=== PATIENT | female | born 1945 | race Caucasian/White ===

== ENCOUNTER 2017-04-22 10:28 | Emergency (ER) | payer MEDICARE, MEDICAID ==
[2017-04-22] MEDS ORDERED: Sodium Chloride 0.9% 10 ML Syringe FLUSH PRN (10:39)
[2017-04-22] MEDS ORDERED: Labetalol 100 MG/20 ML MDV IVPUSH ONE (11:18)
[2017-04-22 11:30] VITALS: BP 224/84
--- NOTE | 2017-04-22 12:18 | EDM.PDOC ---
ED HPI GENERAL MEDICAL PROBLEM - General Chief Complaint: Neurological Problem Stated Complaint: POSS. STROKE Time Seen by Provider: 04/22/17 10:32 Source of Information: Reports: Patient History Limitations: Reports: No Limitations - History of Present Illness INITIAL COMMENTS - FREE TEXT/NARRATIVE: The patient presents with left sided facial weakness. She noticed this about 4 days ago. She has numbness and weakness to her left face but not to her left arm or leg. She has trouble closing her eye. She has no fever, chills, cough, chest pain, shortness of breath, abdominal pain, nausea or vomiting. She stopped taking her medicine a few months ago and her blood pressure is high. Onset: Gradual Duration: Day(s): (4) Location: Reports: Face Severity: Moderate Improves with: Reports: None Worsens with: Reports: None Associated Symptoms: Reports: No Other Symptoms - Related Data Allergies Allergy/AdvReac Type Severity Reaction Status Date / Time No Known Allergies Allergy Verified 07/17/14 10:51 Home Meds: Home Meds Dextran 70/Hypromellose [Artificial Tears] 4 drop EYELF Q2HR #1 bottle 04/22/17 [Rx] Hydrochlorothiazide 25 mg PO DAILY #30 tab 04/22/17 [Rx] Prednisone [IJD: predniSONE] 60 mg PO WITHBREAKFAST #21 tab 04/22/17 [Rx] valACYclovir HCl [Valacyclovir] 1,000 mg PO TID #21 tablet 04/22/17 [Rx] Past Medical History HEENT History: Reports: Impaired Vision Cardiovascular History: Reports: Hypertension Respiratory History: Reports: Sleep Apnea, SOB Gastrointestinal History: Reports: GERD 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: - Past Surgical History HEENT Surgical History: Reports: Cataract Surgery Social & Family History - Tobacco Use Smoking Status *Q: Never Smoker Second Hand Smoke Exposure: No - Caffeine Use Caffeine Use: Reports: Tea - Alcohol Use Days Per Week of Alcohol Use: 0 - Recreational Drug Use Recreational Drug Use: No ED ROS GENERAL - Review of Systems Review Of Systems: See Below Constitutional: Reports: No Symptoms HEENT: Reports: No Symptoms Respiratory: Reports: No Symptoms Cardiovascular: Reports: No Symptoms Endocrine: Reports: No Symptoms GI/Abdominal: Reports: No Symptoms : Reports: No Symptoms Musculoskeletal: Reports: No Symptoms Neurological: Reports: Numbness (Left face), Weakness (Left sided facial weakness) ED EXAM, NEURO - Physical Exam Exam: See Below Exam Limited By: No Limitations General Appearance: Alert, No Apparent Distress Eye Exam: Left Eye: Other (She cannot close her eyelid) Ears: Normal External Exam Nose: Normal Inspection Head Exam: Atraumatic, Normocephalic Neck: Normal Inspection Respiratory/Chest: No Respiratory Distress, Lungs Clear, Normal Breath Sounds Cardiovascular: Regular Rate, Rhythm, No Edema, No Murmur GI/Abdominal: Soft, Non-Tender, No Organomegaly, No Mass Neurological: Alert, Oriented x 3, Other (Moderate left sided facial droop and she cannot close her left eye. She has numbness to the left side of her face. She has no numbness or weakness to her arms or legs. She cannot move the left forehead.) Extremities: Normal Inspection EKG INTERPRETATION EKG Date: 04/22/17 Time: 10:40 Rhythm: NSR Rate (Beats/Min): 74 Boring: Normal P-Wave: Present QRS: Normal ST-T: Normal QT: Normal Course - Vital Signs Last Recorded V/S: Last Vital Signs Temp 98.4 F 04/22/17 10:33 Pulse 69 04/22/17 11:28 Resp 13 04/22/17 10:33 BP 224/84 H 04/22/17 11:28 Pulse Ox 100 04/22/17 10:33 - Orders/Labs/Meds Orders: Active Orders 24 hr Category Date Time Status Cardiac Monitoring [RC] . DIRECTED Care 04/22/17 10:39 Active EKG Documentation Completion [RC] STAT Care 04/22/17 10:40 Active Peripheral IV Care [RC] . DIRECTED Care 04/22/17 10:40 Active Head wo Cont [CT] Stat Exams 04/22/17 10:34 Taken Sodium Chloride 0.9% [Saline Flush] Med 04/22/17 10:39 Active 10 ml FLUSH ASDIRECTED PRN Peripheral IV Insertion Adult [OM.PC] Stat Oth 04/22/17 10:39 Ordered Medication Orders Sodium Chloride (Saline Flush) 10 ml FLUSH ASDIRECTED PRN PRN Reason: Keep Vein Open Last Admin: 04/22/17 10:50 Dose: 10 ml Labs: Laboratory Tests 04/22/17 04/22/17 04/22/17 Range/Units 10:40 10:40 10:40 WBC 10.12 H (3.98-10.04) K/mm3 RBC 5.37 H (3.98-5.22) M/mm3 Hgb 15.3 (11.2-15.7) gm/L Hct 45.2 H (34.1-44.9) % MCV 84.2 (79.4-94.8) fl MCH 28.5 (25.6-32.2) pg MCHC 33.8 (32.2-35.5) g/dl RDW Std Deviation 40.0 (36.4-46.3) fL Plt Count 269 (182-369) K/mm3 MPV 9.6 (9.4-12.3) fl Neut % (Auto) 57.9 (34.0-71.1) % Lymph % (Auto) 34.3 (19.3-51.7) % [place] % (Auto) 5.7 (4.7-12.5) % Eos % (Auto) 1.5 (0.7-5.8) Baso % (Auto) 0.4 (0.1-1.2) % Neut # (Auto) 5.86 (1.56-6.13) K/mm3 Lymph # (Auto) 3.47 (1.18-3.74) K/mm3 [place] # (Auto) 0.58 H (0.24-0.36) K/mm3 Eos # (Auto) 0.15 (0.04-0.36) K/mm3 Baso # (Auto) 0.04 (0.01-0.08) K/mm3 PT 10.0 (8.0-13.0) SECONDS INR 0.92 APTT 26 (22-36) SECONDS Sodium 139 (136-145) mEq/L Potassium 4.0 (3.5-5.1) mEq/L Chloride 103 (98-107) mEq/L Carbon Dioxide 28 (21-32) mEq/L Anion Gap 12.0 (5-15) BUN 24 H (7-18) mg/dL Creatinine 1.4 H (0.55-1.02) mg/dL Est Cr Clr Drug Dosing 33.00 mL/min Estimated GFR (MDRD) 37 (>60) mL/min BUN/Creatinine Ratio 17.1 (14-18) Glucose 122 H (83-115) mg/dL POC Glucose (83-110) mg/dL Calcium 9.5 (8.5-10.1) mg/dL Total Bilirubin 0.7 (0.2-1.0) mg/dL AST 17 (15-37) U/L ALT 26 (14-59) U/L Alkaline Phosphatase 81 (46-116) U/L Troponin I < 0.017 (0.00-0.056) ng/mL Total Protein 7.8 (6.4-8.2) g/dl Albumin 3.9 (3.4-5.0) g/dl Globulin 3.9 gm/dL Albumin/Globulin Ratio 1.0 (1-2) 04/22/17 Range/Units 10:45 WBC (3.98-10.04) K/mm3 RBC (3.98-5.22) M/mm3 Hgb (11.2-15.7) gm/L Hct (34.1-44.9) % MCV (79.4-94.8) fl MCH (25.6-32.2) pg MCHC (32.2-35.5) g/dl RDW Std Deviation (36.4-46.3) fL Plt Count (182-369) K/mm3 MPV (9.4-12.3) fl Neut % (Auto) (34.0-71.1) % Lymph % (Auto) (19.3-51.7) % [place] % (Auto) (4.7-12.5) % Eos % (Auto) (0.7-5.8) Baso % (Auto) (0.1-1.2) % Neut # (Auto) (1.56-6.13) K/mm3 Lymph # (Auto) (1.18-3.74) K/mm3 [place] # (Auto) (0.24-0.36) K/mm3 Eos # (Auto) (0.04-0.36) K/mm3 Baso # (Auto) (0.01-0.08) K/mm3 PT (8.0-13.0) SECONDS INR APTT (22-36) SECONDS Sodium (136-145) mEq/L Potassium (3.5-5.1) mEq/L Chloride (98-107) mEq/L Carbon Dioxide (21-32) mEq/L Anion Gap (5-15) BUN (7-18) mg/dL Creatinine (0.55-1.02) mg/dL Est Cr Clr Drug Dosing mL/min Estimated GFR (MDRD) (>60) mL/min BUN/Creatinine Ratio (14-18) Glucose (83-115) mg/dL POC Glucose 109 (83-110) mg/dL Calcium (8.5-10.1) mg/dL Total Bilirubin (0.2-1.0) mg/dL AST (15-37) U/L ALT (14-59) U/L Alkaline Phosphatase (46-116) U/L Troponin I (0.00-0.056) ng/mL Total Protein (6.4-8.2) g/dl Albumin (3.4-5.0) g/dl Globulin gm/dL Albumin/Globulin Ratio (1-2) Meds: Medications Generic Name Dose Route Start Last Admin Trade Name Freq PRN Reason Stop Dose Admin Sodium Chloride 10 ml 04/22/17 10:39 04/22/17 10:50 Saline Flush FLUSH 10 ml ASDIRECTED PRN Administration Keep Vein Open Discontinued Medications Generic Name Dose Route Start Last Admin Trade Name Freq PRN Reason Stop Dose Admin Labetalol HCl 20 mg 04/22/17 11:18 04/22/17 11:28 Normodyne IVPUSH 04/22/17 11:19 20 mg ONETIME ONE Administration Protocol - Re-Assessments/Exams Free Text/Narrative Re-Assessment/Exam: 04/22/17 12:19 A stroke alert was called. The patient's last time know well was April [address] of her head was done and it shows nothing acute. Her WBC was slightly elevated at 10.12. Her Hgb was 15.3. Her creatinine was elevated at 1.4. Her troponin was negative. I checked her left eye with umberto and there was no sign of a corneal abrasion. She has bells palsy. She has moderate disease. I will get her on some prednisone 60mg daily for 7 days and because she has moderate symptoms I will also put her on some valacyclivir. I will also get her on some HCTZ for her blood pressure. She does not have a doctor so I will have her see Dr Reyes. Departure - Departure Time of Disposition: 12:25 Disposition: Home, Self-Care 01 Condition: Good Clinical Impression: Castillo's palsy Hypertension Qualifiers: Hypertension type: essential hypertension Qualified Code(s): I10 - Essential ( primary) hypertension - Discharge Information Prescriptions: Dextran 70/Hypromellose [Artificial Tears] 4 drop EYELF Q2HR #1 bottle Hydrochlorothiazide 25 mg PO DAILY #30 tab Prednisone [IJD: predniSONE] 60 mg PO WITHBREAKFAST #21 tab valACYclovir HCl [Valacyclovir] 1,000 mg PO TID #21 tablet Referrals: PCP,None [Primary Care Provider] - Galina Reyes MD [Physician] - Forms: ED Department Discharge Additional Instructions: Take predisone 60mg daily for 7 days. Take the valacyclivir 3 times per day. Take the hydrochlorothiazide daily for your blood pressure. Use the artifical tears 4 drops every 4 hours as needed or more if needed. Please return if you are worse. Follow up with Dr Reyes this next week. - My Orders Last 24 Hours: My Active Orders 04/22/17 10:34 Head wo Cont [CT] Stat 04/22/17 10:39 Cardiac Monitoring [RC] . DIRECTED Sodium Chloride 0.9% [Saline Flush] 10 ml FLUSH ASDIRECTED PRN Peripheral IV Insertion Adult [OM.PC] Stat 04/22/17 10:40 EKG Documentation Completion [RC] STAT Peripheral IV Care [RC] . DIRECTED - Assessment/Plan Last 24 Hours: My Active Orders 04/22/17 10:34 Head wo Cont [CT] Stat 04/22/17 10:39 Cardiac Monitoring [RC] . DIRECTED Sodium Chloride 0.9% [Saline Flush] 10 ml FLUSH ASDIRECTED PRN Peripheral IV Insertion Adult [OM.PC] Stat 04/22/17 10:40 EKG Documentation Completion [RC] STAT Peripheral IV Care [RC] . DIRECTED
--- NOTE | 2017-04-23 13:26 | CT ---
Head CT Technique: Multiple axial sections through the brain were obtained. Intravenous contrast was not utilized. Comparison: No previous intracranial imaging. Findings: Ventricles along with basal cisterns and sulci over the convexities are mildly prominent. Slightly greater atrophy is seen within the frontal regions. 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 No other abnormal parenchymal densities are seen. No evidence of intracranial hemorrhage. No midline shift or mass effect is seen. Bone window settings were reviewed which show the visualized sinuses to appear clear. No acute calvarial abnormality is seen. Impression: 1. Mild senescent change as described above. 2. No acute intracranial abnormality is identified. Diagnostic code #2 MTDD
== END 2017-04-22 13:00 | disposition home or self-care (01) ==
LOC: JD.ED 10:28
DX: G51.0 Bell's palsy (principal); I10 Essential (primary) hypertension; K21.9 Gastro-esophageal reflux disease without esophagitis; Z79.899 Other long term (current) drug therapy
CPT/HCPCS: 36415; 70450; 70450-26; 80053; 82962; 84484; 85025; 85610; 85730; 93005; 96374; 99285-25; J7050

== ENCOUNTER 2020-09-11 18:34 | Emergency (ER) | payer MEDICARE, MEDICAID ==
[2020-09-11] MEDS ORDERED: Labetalol 100 MG/20 ML MDV IVPUSH STA (19:43)
--- NOTE | 2020-09-11 20:18 | CT ---
Head CT Technique: Multiple axial sections through the brain were obtained. Intravenous contrast was not utilized. Reconstructed coronal and sagittal images were obtained. Comparison: Prior head CT study of 04/22/17. Findings: Ventricles along with basal cisterns and sulci over the convexities are mildly prominent. Atrophy is more prominent within the frontal regions. These findings are stable from prior head CT exam. Small lacunar infarct is noted within the right basal ganglia. Mild areas of diminished density are noted within the periventricular white matter compatible with mild small vessel ischemic demyelination change. There is no evidence of intracranial hemorrhage. No midline shift or mass-effect is seen. Bone window settings were reviewed. Visualized mastoid sinuses and paranasal sinuses show nothing acute. No acute calvarial abnormality is appreciated. Impression: 1. Senescent change as described above. Findings remain fairly stable from prior head CT exam. 2. No acute intracranial abnormality is appreciated. Diagnostic code #2
--- NOTE | 2020-09-11 20:19 | EDM.PDOC ---
ED HPI GENERAL MEDICAL PROBLEM - General Chief Complaint: General Stated Complaint: POSS UTI Time Seen by Provider: 09/11/20 19:01 Source of Information: Reports: Patient, Family (Daughter) History Limitations: Reports: No Limitations - History of Present Illness INITIAL COMMENTS - FREE TEXT/NARRATIVE: Mrs. Hughes is a very pleasant 75-year-old woman who is now brought to the ED by her daughter for a number of complaints. She states that she has had a vaginal prolapse for the past 10 or 15 years, which has never been medically evaluated. She reports having either vaginal bleeding or gross hematuria for the past 3 weeks. The blood ranges from bright red to dark brown, and only occurs if she urinates, which is sometimes difficult. She denies having dysuria, although r eports having some urinary frequency. She also reports having 2 days of a bitemporal headache and upper right back pain. She describes the headache as a "sharp jab" that lasts only 1 to 2 minutes, and occurs only once a day. She states that her upper right back pain is not currently present. The triage note indicated that the patient has had blurry vision, but she states that that is chronic, and that she has not been to an eye doctor in years. The patient expressly denies having any recent chest pain, palpitations, dyspnea, abdominal pain, nausea, vomiting, or diarrhea. She states that she is chronically constipated. She reports that she experiences some dyspnea on exertion. The patient and her daughter went to the walk-in clinic today, where her systolic blood pressure was found to be over 200, therefore she was sent here. The patient states that she was treated for hypertension in 2014, but took the antihypertensive for less than a year, stopping on her own due to intolerance of side effects. She was then treated again for hypertension in 2018, but stopped the medication after less than a week, again for intolerance of side effects. Here in the ED, the patient's initial BP is found to be significantly elevated at 244/149. She is afebrile, saturating 97% on room air. A subsequent BP was found to be even higher at 263/96. The patient appears to be comfortable, in no acute distress. The patient denies having a recent fever, chills, sore throat, ear pain, nasal or sinus congestion, cough, dyspnea at rest, chest pain, palpitations, nausea, vomiting, diarrhea, abdominal pain, recent weight gain or weight loss, recent bloody bowel movements or black bowel movements, recent joint aches, or rashes. Patient does not have a PCP. Headache Pain Score (Numeric/FACES): 1 - Related Data Allergies Allergy/AdvReac Type Severity Reaction Status Date / Time No Known Allergies Allergy Verified 09/11/20 18:42 Home Meds: Home Meds Losartan/Hydrochlorothiazide [Losartan-HCTZ 50-12.5 MG] 1 tab PO QPM #30 tablet 09/11/20 [Rx] Past Medical History HEENT History: Reports: Impaired Vision Cardiovascular History: Reports: Hypertension (untreated) - Past Surgical History HEENT Surgical History: Reports: Cataract Surgery (right only), Oral Surgery (dental extractions) Musculoskeletal Surgical History: Reports: Other (See Below) (Right upper extremity repair) Social & Family History - Tobacco Use Tobacco Use Status *Q: Never Tobacco User - Caffeine Use Caffeine Use: Reports: Soda - Alcohol Use Alcohol Use History: No - Recreational Drug Use Recreational Drug Use: No - Living Situation & Occupation Living situation: Reports: , Alone Occupation: Retired ED ROS GENERAL - Review of Systems Review Of Systems: Comprehensive ROS is negative, except as noted in HPI. ED EXAM, GENERAL - Physical Exam Exam: See Below Exam Limited By: No Limitations General Appearance: Alert, WD/WN, No Apparent Distress Eye Exam: Bilateral Eye: EOMI, Normal Inspection (right s/p cataract surgery) Ears: Normal External Exam, Normal Canal, Hearing Grossly Normal, Normal TMs Nose: Normal Inspection, Normal Mucosa, No Blood Throat/Mouth: Normal Inspection, Normal Lips, Normal Teeth, Normal Gums, Normal Oropharynx, Normal Voice, No Airway Compromise Head: Atraumatic, Normocephalic Neck: Normal Inspection, Supple, Non-Tender, Full Range of Motion. No: Carotid Bruit, Lymphadenopathy (L), Lymphadenopathy (R) Respiratory/Chest: No Respiratory Distress, Lungs Clear, Normal Breath Sounds, No Accessory Muscle Use Cardiovascular: Normal Peripheral Pulses, Regular Rate, Rhythm, No Edema, No Gallop, No JVD, No Murmur, No Rub Peripheral Pulses: 3+: Radial (L), Radial (R) GI/Abdominal: Normal Bowel Sounds, Soft, Non-Tender, No Organomegaly, No Distention, No Abnormal Bruit, No Mass (Female) Exam: Other (Full vaginal prolapse/eversion, able to be reduced) Back Exam: Normal Inspection, Full Range of Motion, NT Extremities: Normal Inspection, Normal Range of Motion, No Pedal Edema, Normal Capillary Refill Neurological: Alert, Oriented, CN II-XII Intact, Normal Cognition, No Motor/Sensory Deficits Psychiatric: Normal Affect Skin Exam: Warm, Dry, Intact, Normal Color, No Rash #1 Interpretation EKG Date: 09/11/20 Time: 19:50 Rhythm: NSR Rate (Beats/Min): 64 [place]: Normal P-Wave: Present QRS: Other (LVH) ST-T: Other (T wave inversions V3V6, but no ischemic changes) QT: Normal Comparison: No Change (04/22/2017) Course - Vital Signs Last Recorded V/S: Last Vital Signs Temp 36.4 C 09/11/20 18:50 Pulse 60 09/11/20 23:16 Resp 16 09/11/20 23:16 BP 222/90 H 09/11/20 23:16 Pulse Ox 98 09/11/20 23:16 - Orders/Labs/Meds Labs: Laboratory Tests 09/11/20 09/11/20 09/11/20 Range/Units 18:58 18:58 18:58 WBC 11.11 H (3.98-10.04) K/mm3 RBC 4.95 (3.98-5.22) M/mm3 Hgb 14.3 (11.2-15.7) gm/dl Hct 42.7 (34.1-44.9) % MCV 86.3 (79.4-94.8) fl MCH 28.9 (25.6-32.2) pg MCHC 33.5 (32.2-35.5) g/dl RDW Std Deviation 41.3 (36.4-46.3) fL Plt Count 285 (182-369) K/mm3 MPV 10.2 (9.4-12.3) fl Neutrophils % (Manual) 47 (40-60) % Band Neutrophils % 0 (0-10) % Lymphocytes % (Manual) 40 (20-40) % Atypical Lymphs % 2 % Monocytes % (Manual) 8 (2-10) % Eosinophils % (Manual) 3 (0.7-5.8) % Basophils % (Manual) 0 L (0.1-1.2) Platelet Estimate Adequate RBC Morph Comment Normal Sodium 137 (136-145) mEq/L Potassium 4.0 (3.5-5.1) mEq/L Chloride 102 (98-107) mEq/L Carbon Dioxide 25 (21-32) mEq/L Anion Gap 14.0 (5-15) BUN 30 H (7-18) mg/dL Creatinine 1.4 H (0.55-1.02) mg/dL Est Cr Clr Drug Dosing 26.62 mL/min Estimated GFR (MDRD) 36 (>60) mL/min BUN/Creatinine Ratio 21.4 H (14-18) Glucose 143 H (70-99) mg/dL Calcium 9.3 (8.5-10.1) mg/dL Magnesium 2.1 (1.8-2.4) mg/dL Total Bilirubin 0.4 (0.2-1.0) mg/dL AST 15 (15-37) U/L ALT 27 (14-59) U/L Alkaline Phosphatase 75 (46-116) U/L Troponin I < 0.017 (0.00-0.056) ng/mL NT-Pro-B Natriuret Pep 708 H (0-450) pg/mL Total Protein 7.3 (6.4-8.2) g/dl Albumin 3.7 (3.4-5.0) g/dl Globulin 3.6 gm/dL Albumin/Globulin Ratio 1.0 (1-2) TSH 3rd Generation 4.152 H (0.358-3.74) uIU/mL Urine Color (Yellow) Urine Appearance (Clear) Urine pH (5.0-8.0) Ur Specific [place] (1.005-1.030) Urine Protein (Negative) Urine Glucose (UA) (Negative) Urine Ketones (Negative) Urine Occult Blood (Negative) Urine Nitrite (Negative) Urine Bilirubin (Negative) Urine Urobilinogen (0.2-1.0) Ur Leukocyte Esterase (Negative) Urine RBC (0-5) /hpf Urine WBC (0-5) /hpf Ur Squamous Epith Cells (0-5) /hpf Urine Bacteria (FEW) /hpf Urine Mucus (FEW) /hpf 09/11/ Range/Units 20:35 WBC (3.98-10.04) K/mm3 RBC (3.98-5.22) M/mm3 Hgb (11.2-15.7) gm/dl Hct (34.1-44.9) % MCV (79.4-94.8) fl MCH (25.6-32.2) pg MCHC (32.2-35.5) g/dl RDW Std Deviation (36.4-46.3) fL Plt Count (182-369) K/mm3 MPV (9.4-12.3) fl Neutrophils % (Manual) (40-60) % Band Neutrophils % (0-10) % Lymphocytes % (Manual) (20-40) % Atypical Lymphs % % Monocytes % (Manual) (2-10) % Eosinophils % (Manual) (0.7-5.8) % Basophils % (Manual) (0.1-1.2) Platelet Estimate RBC Morph Comment Sodium (136-145) mEq/L Potassium (3.5-5.1) mEq/L Chloride (98-107) mEq/L Carbon Dioxide (21-32) mEq/L Anion Gap (5-15) BUN (7-18) mg/dL Creatinine (0.55-1.02) mg/dL Est Cr Clr Drug Dosing mL/min Estimated GFR (MDRD) (>60) mL/min BUN/Creatinine Ratio (14-18) Glucose (70-99) mg/dL Calcium (8.5-10.1) mg/dL Magnesium (1.8-2.4) mg/dL Total Bilirubin (0.2-1.0) mg/dL AST (15-37) U/L ALT (14-59) U/L Alkaline Phosphatase (46-116) U/L Troponin I (0.00-0.056) ng/mL NT-Pro-B Natriuret Pep (0-450) pg/mL Total Protein (6.4-8.2) g/dl Albumin (3.4-5.0) g/dl Globulin gm/dL Albumin/Globulin Ratio (1-2) TSH 3rd Generation (0.358-3.74) uIU/mL Urine Color Yellow (Yellow) Urine Appearance Clear (Clear) Urine pH 5.5 (5.0-8.0) Ur Specific [place] > or = 1.030 (1.005-1.030) Urine Protein 2+ H (Negative) Urine Glucose (UA) Negative (Negative) Urine Ketones Negative (Negative) Urine Occult Blood Negative (Negative) Urine Nitrite Negative (Negative) Urine Bilirubin Negative (Negative) Urine Urobilinogen 0.2 (0.2-1.0) Ur Leukocyte Esterase Negative (Negative) Urine RBC 0-5 (0-5) /hpf Urine WBC 0-5 (0-5) /hpf Ur Squamous Epith Cells 5-10 H (0-5) /hpf Urine Bacteria Moderate H (FEW) /hpf Urine Mucus Few (FEW) /hpf Meds: Medications Discontinued Medications Generic Name Dose Route Start Last Admin Trade Name Freq PRN Reason Stop Dose Admin Hydrochlorothiazide 12.5 mg 09/11/20 22:58 09/11/20 23:10 Hydrochlorothiazide 12.5 Mg Cap PO 09/11/20 22:59 12.5 mg ONETIME STA Administration Labetalol HCl 10 mg 09/11/20 19:43 09/11/20 19:49 Labetalol 100 Mg/20 Ml Mdv IVPUSH 09/11/20 19:44 10 mg ONETIME STA Administration Protocol Losartan Potassium 50 mg 09/11/20 22:57 09/11/20 23:10 Losartan 50 Mg Tab PO 09/11/20 22:58 50 mg ONETIME ONE Administration - Re-Assessments/Exams Free Text/Narrative Re-Assessment/Exam: 09/11/20 19:48 As above, while not formally diagnosed, the patient has a long history of elevated blood pressure, treated for less than a year in 2015 and for only 1 week in 2018. She is also had a vaginal prolapse for 10 to 15 years with no prior medical evaluation. She now presents stating that she has had about 3 weeks of either vaginal bleeding or gross hematuria with urination, painless, ranging from bright red blood to dark brown blood along with 2 days of a bitemporal headache, felt as a brief sharp jab about once a day, and 2 days of upper right/scapular back pain that already resolved. Her initial BP was elevated at 244/149, but a subsequent BP was even higher, at 263/96. At present, the patient denies having a headache, and she denies any recent chest pain or discomfort, palpitations dyspnea, abdominal pain, nausea, vomiting, or diarrhea. She states that she has been developing mild dyspnea on exertion over many years. We talked at length about her blood pressure. She states that she self discontinued antihypertensive medication in the past due to adverse side effects. I explained that, ordinarily, our goal is not to rapidly reduce a patient's blood pressure, but to bring it under control over the course of several weeks, but even then, it is possible that a patient would feel poorly while her blood pressure is descending. In this patient's case, the patient's condition is consistent with severe asystematic hypertension, also known as hypertensive urgency, and dictates immediate treatment, although not immediate response. Her BP can safely be brought down over the course of days, or even weeks. I recommended the following: Treatment with an antihypertensive, such as IV labetalol, at this time. Check some blood work. Move the patient to room 7 for evaluation of her vaginal prolapse. Check a bladder scan and place a López catheter if there is significant urinary retention, otherwise, obtain a urinalysis by quick-catheter if an acceptable amount of urine is in the bladder. Check a CT of the head without contrast, a chest x-ray, and an ECG. Recommend a long-term antihypertensive based on her renal function. 09/11/20 20:21 CT of the head without contrast is read by Dr. Farrell as: 1. Senescent change as described above. Findings remain fairly stable from prior head CT exam. 2. No acute intracranial abnormality is appreciated. Two-view chest radiograph reviewed. The cardiac silhouette is at the upper limits of normal. No pulmonary vascular congestion. No pleural effusions. No focal infiltrate. No pneumothorax. There is hyperinflation and bilateral diaphragmatic flattening, consistent with COPD. Formal read per the Radiologist pending. 09/11/20 20:34 The bladder scan revealed about 200 mL of urine, therefore we elected to quick catheterize the patient, and not place an indwelling catheter. On pelvic examination, the patient has a full vaginal prolapse which was easily reduced, however, will certainly re-prolapse as soon as the patient increases her intra-abdominal pressure or stands up. Her urethra was then identified, and Marycruz LAYTON quick-catheterized her, recovering clear yellow urine. 09/11/20 21:15 The patient's CBC is remarkable for mild leukocytosis of 11.11, but with 0% bandemia, and the remainder of her CBC being unremarkable. Her CMP is remarkable for a BUN/Cr elevated at 30/1.4, and hyperglycemia of 143, with the remainder of her CMP being unremarkable. Her magnesium level is within normal limits at 2.1. Her TSH is elevated at 4.152. Her troponin is undetectably low. Her pro-BNP is mildly elevated at 708. Review of prior labs finds that the patient's BUN/Cr were 15/1.3 on 05/07/2017. At this time, the patient's BP is down to 213/83, with a HR of 59. 09/11/20 22:57 The patient's urinalysis is remarkable for occult blood negative with 0-5 RBCs, leukocyte esterase negative with 0-5 WBCs, nitrate negative with moderate bacteria, and 5-10 squamous epithelial cells. 09/11/20 23:30 Test results discussed with the patient and her daughter. I will discharge her home with a prescription for losartan/HCTZ 50/12.5, 1 tab po QPM, to start tomorrow evening. I will refer her to the clinic, so that she can establish a PCP to deal with her hypertension and any other medical problems that she may have, and I will also refer her to Dr. Scott to address her vaginal prolapse. Departure - Departure Time of Disposition: 23:31 Disposition: Home, Self-Care 01 Condition: Good Clinical Impression: Hypertensive urgency, Vaginal prolapse, Mild renal insufficiency - Discharge Information *PRESCRIPTION DRUG MONITORING PROGRAM REVIEWED*: Not Applicable *COPY OF PRESCRIPTION DRUG MONITORING REPORT IN PATIENT MAYE: Not Applicable Prescriptions: Losartan/Hydrochlorothiazide [Losartan-HCTZ 50-12.5 MG] 1 tab PO QPM #30 tablet Instructions: Pelvic Organ Prolapse, Hypertension, Adult, [id number] Referrals: PCP,None [Primary Care Provider] - Yoko Reeves NP [Nurse Practitioner] - Justin Scott MD [Physician] - Forms: ED Department Discharge Additional Instructions: You were seen in the emergency room for 3 weeks of vaginal or urinary bleeding, along with 2 days of a headache and back pain, along with high blood pressure. Work-up in the ER included a bladder scan, numerous blood tests, a urinalysis, a chest x-ray, a CT of your head, and an ECG. Your work-up found that your kidney function is mildly impaired. This is probably chronic. On examination, you have a complete vaginal prolapse. Your blood pressure was found to be very high. You were treated with an IV blood pressure medicine, with fairly good reduction in your blood pressure, after which you were started on the blood pressure medicine losartan/HCTZ. A prescription for losartan/HCTZ has been sent to the [facility], located in the [facility]. Take 1 tablet of losartan/HCTZ every evening, starting tomorrow evening, , 09/12/2020, as prescribed. We recommend that you follow-up with Yoko Reeves NP, or one of the other providers in the clinic, to establish a primary care provider (PCP). Your PCP can continue to manage her blood pressure, as well as address other medical problems that you may have. We also recommend that you follow-up with the [facility] Dr. Justin Scott at the next available appointment. He can address your vaginal prolapse. If any other problems, please do not hesitate to return to the ER. Sepsis Event Note (ED) - Evaluation Sepsis Screening Result: No Definite Risk - Focused Exam Vital Signs: Vital Signs Pulse Resp BP BP Pulse Ox 09/11/20 23:16 60 16 222/90 H 98 09/11/20 23:10 227/86 H 09/11/20 21:14 59 L 16 213/83 H 98
--- NOTE | 2020-09-11 21:18 | CR ---
Chest: 2 views of the chest were obtained. Comparison: Prior portable chest x-ray of 07/17/14. Heart is enlarged. Tortuous thoracic aorta is seen. Lungs are clear with no acute parenchymal change. Diaphragms are slightly flattened suggesting some emphysematous change. Mild scattered degenerative change is seen within the spine with disc space narrowing. Impression: 1. Slight cardiomegaly with probable emphysematous change. 2. Nothing acute is otherwise seen. Diagnostic code #2
[2020-09-11] MEDS ORDERED: Losartan 50 MG Tab PO ONE (22:57)
[2020-09-11] MEDS ORDERED: Hydrochlorothiazide 12.5 MG Cap PO STA (22:58)
[2020-09-11 23:16] VITALS: BP 222/90; PULSE 60
== END 2020-09-11 23:45 | disposition home or self-care (01) ==
LOC: JD.ED 18:34
DX: N81.10 Cystocele, unspecified (principal); I16.0 Hypertensive urgency; N28.9 Disorder of kidney and ureter, unspecified; I51.7 Cardiomegaly; Z79.899 Other long term (current) drug therapy
CPT/HCPCS: 36415; 70450; 71046; 80053; 81001; 83735; 83880; 84443; 84484; 85007; 85027; 93005; 96374; 99284; A9270; J3490; 93010

== ENCOUNTER 2022-03-31 11:42 | Emergency (ER) | payer MEDICARE, MEDICAID ==
[2022-03-31 12:52] LABS: ESTIMATED GFR 33 mL/min (>60)
[2022-03-31 13:12] VITALS: PULSE 70
[2022-03-31 13:51] VITALS: BP 200/70
== END 2022-03-31 13:33 | disposition home or self-care (01) ==
LOC: JD.ED 11:42
DX: T21.31XA Burn of third degree of chest wall, initial encounter (principal); T20.20XA Burn of second degree of head, face, and neck, unspecified site, initial encounter; R55 Syncope and collapse; I10 Essential (primary) hypertension; X15.0XXA Contact with hot stove (kitchen), initial encounter
CPT/HCPCS: 16020; 36415; 80053; 82947; 84484; 85025; 93005; 99284